=== PATIENT | female | born 1960 | race Caucasian/White ===

== ENCOUNTER 2022-06-29 13:33 | Outpatient (CLI) | payer OTHER, SELFPAY ==
--- NOTE | 2022-06-29 14:00 | MM_ITS ---
WS: [id number] BILATERAL 3D TOMOSYNTHESIS DIGITAL SCREENING MAMMOGRAPHY WITH CAD CLINICAL INFORMATION: SCREENING HISTORY: Screening mammogram. No current complaints. COMPARISON: April 09, 2021 TECHNIQUE: Bilateral CC and MLO views. FINDINGS: Scattered fibroglandular densities bilaterally. A few Incidental punctate calcifications. Stable clus tered calcifications central LEFT breast. No suspicious focal mass, asymmetry, calcifications, or arc hitectural distortion. No evidence of malignancy. MM/[place] [id number] IMPRESSION: BI-RADS: 2-Benign FOLLOW UP: 1 Year Follow-up Recommend return to annual screening mammography.
== END 2022-06-29 13:34 | disposition home or self-care (01) ==
PROVIDERS: Visit Provider Internal Medicine Geriatric Medicine
DX: Z12.31 Encounter for screening mammogram for malignant neoplasm of breast (principal)
CPT/HCPCS: 77063; 77067

== ENCOUNTER 2023-06-29 13:31 | Outpatient (CLI) | payer MEDICAID, OTHER, SELFPAY ==
--- NOTE | 2023-06-29 13:38 | MM_ITS ---
WS: [id number] BILATERAL 3D TOMOSYNTHESIS DIGITAL SCREENING MAMMOGRAPHY WITH CAD CLINICAL INFORMATION: SCREENING HISTORY: Screening mammogram. No current complaints. COMPARISON: None. TECHNIQUE: Bilateral CC and MLO views. FINDINGS: Scattered fibroglandular densities bilaterally. New suspicious slightly spiculated 6 mm ovoid nodule central RIGHT breast lower inner quadrant. Recommend RIGHT diagnostic mammography and ultrasound. LEFT breast is unchanged. IMPRESSION: MM/[place] [id number] BI-RADS: 0-Incomplete: Need additional imaging evaluation FOLLOW UP: Need Additional Imaging Recommend RIGHT diagnostic mammography and ultrasound.
== END 2023-06-29 13:32 | disposition home or self-care (01) ==
LOC: RAD 13:36 → MOBLMAM 13:36
PROVIDERS: Visit Provider Nurse Practitioner Family
DX: Z12.31 Encounter for screening mammogram for malignant neoplasm of breast (principal)
CPT/HCPCS: 77063; 77067

== ENCOUNTER 2023-08-25 13:43 | Outpatient (CLI) | payer MEDICAID, SELFPAY ==
--- NOTE | 2023-08-25 13:47 | MM_ITS ---
WS: [email or web address] RIGHT 3D TOMOSYNTHESIS DIGITAL MAMMOGRAPHY WITH CAD CLINICAL INFORMATION: ABNORMAL MAMMO HISTORY: Additional views COMPARISON: 06/29/2023 TECHNIQUE: 3 views of the right breast were obtained. FINDINGS: Scattered fibroglandular densities of the right breast. Stable previously described 6 mm slightly spiculated ovoid nodule central RIGHT breast lower inner qu adrant. Ultrasound is pending. ULTRASOUND BREAST RIGHT TECHNIQUE: Ultrasound right breast focused area of concern. CLINICAL INFORMATION: ABNORMAL MAMMO FINDINGS: Ultrasound RIGHT breast at 6 o'clock position of the areola demonstrates a hypoechoic spiculated lesi on with a suspicious appearance. This measures approximately 2.5 x 4.3 x 5.2 mm and corresponds to th e nodule seen on the recent mammogram. Recommend further evaluation with ultrasound-guided biopsy. IMPRESSION: MM/[place] [id number] BI-RADS: 4-Suspicious Finding-Biopsy Should Be Considered FOLLOW UP: US Guided Biopsy Recommended Recommend further evaluation with ultrasound-guided biopsy.
== END 2023-08-25 13:44 | disposition home or self-care (01) ==
LOC: RAD 13:44
PROVIDERS: PCP Family Medicine; Visit Provider Obstetrics & Gynecology
DX: R92.8 Other abnormal and inconclusive findings on diagnostic imaging of breast (principal)
CPT/HCPCS: 76642; 77061; G0279

== ENCOUNTER 2023-08-31 13:28 | Outpatient (CLI) | payer MEDICAID, SELFPAY ==
--- NOTE | 2023-08-31 13:37 | US_ITS ---
WS: [email or web address] ULTRASOUND-GUIDED RIGHT BREAST BIOPSY CLINICAL INFORMATION: BREAST MASS/LUMP COMPARISON: 08/25/2023 FINDINGS: The procedure including risks, benefits, and complications were discussed with the patient who agreed to proceed. Using sterile technique patient was prepped and draped in the usual sterile fashion. Aft er 1% lidocaine utilizing real-time ultrasound guidance 5 14-gauge cores were obtained of the RIGHT b reast lesion at the 6 o'clock areola position. Subsequently a titanium clip was placed in the biopsy cavity. No immediate complications. Pathology demonstrates Final Diagnosis Right breast, 6:00 position at areola, needle core biopsy: 1. Invasive mammary carcinoma with ductal/lobular features. 2. Nuclear Grade 2. 3. Tumor size: 0.5 cm (glass slide measurement). 4. Breast tumor profile ordered and results pending at this time. IMPRESSION: 1. Uncomplicated ultrasound-guided RIGHT breast biopsy. 2. The pathology demonstrates invasive mammary carcinoma with ductal/lobular features grade 2 3. Breast tumor profile is pending. See pathology report for additional detail. 4. Recommend breast surgery consultation. US/[place] [id number] BI-RADS: 6-Known Biopsy-Proven Malignancy FOLLOW UP: Surgical Biopsy Recommended
[2023-09-08 07:14] LABS: Breast Profile ER,PR,HER2,Ki-6 See Report
== END 2023-08-31 13:29 | disposition home or self-care (01) ==
PROVIDERS: PCP Family Medicine; Visit Provider Family Medicine
DX: C50.011 Malignant neoplasm of nipple and areola, right female breast (principal)
CPT/HCPCS: 19083; 88305; 88361; 88374

== ENCOUNTER → 2023-09-12 09:13 | Outpatient (BNVA) | payer MEDICAID, SELFPAY | PROVIDERS: PCP Family Medicine; Visit Provider Podiatrist Foot & Ankle Surgery | DX: M79.671 Pain in right foot (principal); M72.2 Plantar fascial fibromatosis | CPT/HCPCS: 73630 ==

== ENCOUNTER 2023-11-03 12:47 | Outpatient (CLI) | payer MEDICAID, SELFPAY ==
--- NOTE | 2023-11-03 12:55 | XR_ITS ---
WS: [email or web address] SCREENING DEXA SCAN [facility] CLINICAL INFORMATION: ROUTINE, RIGHT BREAST CANCER COMPARISON: None. FINDINGS: The LEFT forearm bone mineral density measures 0.798. This corresponds to a T score score of -0.9 and Z score of 0.3. Left femoral neck bone mineral density measures 0.974 g/cm2. This corresponds to a T score of -0.3 an d Z score of 0.5. Right femoral neck bone mineral density measures 0.993 g/cm2. This corresponds to a T score -0.1of an d Z score of 0.6. Mean femoral neck bone mineral density measures 0.984 g/cm2. This corresponds to a T score of -0.2 an d Z score of 0.6. IMPRESSION: Normal bone mineralization LEFT forearm at the upper end of the range approaching osteopenia. Normal bone mineralization femoral necks. Patient's FRAX calculated 0 year probability for major osteoporotic fracture is 24.2% and osteoporoti c hip fracture is 0.9%.
== END 2023-11-03 12:48 | disposition home or self-care (01) ==
LOC: RAD 12:48
PROVIDERS: PCP Family Medicine; Visit Provider Family Medicine
DX: Z13.820 Encounter for screening for osteoporosis (principal); C50.911 Malignant neoplasm of unspecified site of right female breast
CPT/HCPCS: 77080